=== PATIENT | female | born 1990 ===

== ENCOUNTER 2021-02-14 22:40 | Inpatient (IN) | payer OTHER ==
[~2021-02-14] VITALS: Ht 177.8 cm; Wt 74.1 kg
--- NOTE | 2021-02-14 22:50 | NUR ---
PT TO UNIT AMBULATORY WITH SPOUSE WITH COMPLAINTS OF CONTRACTIONS. PT ORIENTED TO ROOM, CHANGED INTO GOWN, EFMX2 APPLIED, VS OBTAINED, SVE PERFORMED.
[2021-02-14 23:30] VITALS: BP 141/86; PULSE 50; TEMP 98.4
[2021-02-15] VITALS (41 sets, daily range): BP systolic 108–172; BP diastolic 61–102; PULSE 48–91; TEMP 97.4–99.2
[2021-02-15 00:24] LABS: COLLECTION METHOD CLEAN CATCH
[2021-02-15 00:31] LABS: MUCOUS Present /lpf; PH 5 (5-8); SQUAMOUS EPITHELIAL None Seen /hpf; URINE APPEARANCE Clear; URINE BACTERIA None Seen /hpf; URINE BILIRUBIN Negative (NEGATIVE); URINE BLOOD Negative (NEGATIVE); URINE COLOR Amber; URINE GLUCOSE Negative (NEGATIVE); URINE KETONE Negative (NEGATIVE); URINE LEUKOCYTE ESTERASE Negative (NEGATIVE); URINE NITRATE Negative (NEGATIVE); URINE PROTEIN(semi-quant) 1+ (NEGATIVE); URINE RBC None Seen /hpf; URINE WBC 0-2 /hpf
[2021-02-15 00:38] LABS: ALBUMIN 3.4 gm/dL (3.5-5.0); CALCIUM 9.1 mg/dL (8.4-10.2); CREATININE, serum 0.92 (0.52-1.25); POTASSIUM 3.8 mmol/L (3.4-5.0); TOTAL PROTEIN 6.8 gm/dL (6.4-8.2)
[2021-02-15 00:40] LABS: BASO % 0.4 % (0.0-2.0); EOS % 0.3 % (0-4.0); GRAN # 8.4 (1.4-6.5); GRAN % 77.7 % (42.2-75.2); HEMATOCRIT 37.3 % (37.0-47.0); HEMOGLOBIN 12.8 g/dl (12.5-16.0); LYMPH # 1.6 (1.2-3.4); LYMPH % 15.2 % (20.0-51.0); MEAN CELL VOLUME 93 fl (80.0-100.0); MEAN CORPUSCULAR HEMOGLOBIN 32 pg (27.0-31.0); MEAN CORPUSCULAR HGB CONC 34 g/dl (33.0-37.0); MONO # 0.6 (0.1-0.6); MONO % 5.8 % (1.7-9.3); PLATELET COUNT 187 K/mm3 (130-400); RED BLOOD COUNT 4.01 M/mm3 (4.10-5.30); REDCELL DISTRIBUTION WIDTH-CV 12.3 % (11.5-14.5)
[2021-02-15 00:58] LABS: BILIRUBIN,TOTAL 1.7 mg/dL (0.0-1.0)
--- NOTE | 2021-02-15 01:00 | NUR ---
0038- PT SITTING UP AT BEDSIDE FOR EPIDURAL PLACEMENT. 0040- FRANKO HARDING IN ROOM TO PLACE EPIDURAL. DISCUSSES RISKS/BENEFITS OF EPIDURAL WITH PT AND SPOUSE, UNDERSTANDING VERBALIZED. PT AGREES TO EPIDURAL PLACEMENT. 0053- TEST DOSE GIVEN BY Marquis BURROUGHS CRNA, PT TOLERATED WELL. 0100- PT REPOSITIONED INTO SACHIN POSITION FOLLOWING EPIDURAL PLACEMENT.
[2021-02-15] MEDS ORDERED: ASPIRIN 81M81 MG/TA2 PO (02:21)
[2021-02-15] MEDS ORDERED: SYNTHROID0.05 MG/TA PO (02:23)
[2021-02-15] MEDS ORDERED: PRENATAL TABLET PO (02:24)
--- NOTE | 2021-02-15 07:44 | NUR ---
0744- Patient reports increased rectal pressure. SVE C/+2. Dr. Vizcaino notified. See physician notification. 0752- Patient instructed on pushing with ctx. Begins to push with ctx with this RN at bedside. 0756- Dr. Vizcaino to bedside. 0757- AROM for small amount of mec stained fluid. Patient continues to push with Dr. Vizcaino at bedside. 0810- Spontaneous vaginal delivery of viable male . To mother's chest where dried and stimulated by nursery RN. 0812- Cord clamped x2 and cut by adam. Care of assumed by Yash Alonzo RN. 0816- Spontaneous and intact delivery of placenta. Pitocin to 333ml/hr per protocol. Second degree and periurethral laceration repaired by Dr. Vizcaino. Fundus firm, midline, and bleeding minimal. Kylah care provided, pads changed, and ice pack to perineum. Plan of care and safety precatuions reviewed. See doctor dictation, anesthesia record, and nurses notes.
--- NOTE | 2021-02-15 10:15 | NUR ---
Patient states she feels gush of fluids. Fundus firm and midline. Pt voids with fundal exam. To edge of bed, epidural catheter removed, see flowsheet. Clean gown on, pads changed. Patient reports lightheadedness and nausea. Pivot to wheelchair and to room 216. Patient reports nausea and lightheadedness improved. Oriented to room and POC.
--- NOTE | 2021-02-15 15:00 | NUR ---
Pala size clot noted to pad. Fundus firm, midline, and bleeding minimal. VSS. Will cont. to monitor.
--- NOTE | 2021-02-15 19:00 | NUR ---
1900- PT CALLS OUT THAT SHE HAS PASSED A LARGE CLOT AND LEAKED BLOOD ALL OVER THE FLOOR IN HER ROOM, NURSE TO BEDSIDE. PT IN [id number] CLEANING UP, DENIES DIZZINESS OR LIGHTHEADED. BLOOD SPLATTERS ON FLOOR FROM WINDOW TO ROOM, SEEM TO ALSO BE MIXED WITH URINE. BASEBALL SIZED CLOT NOTED ON PAD IN BATHROOM. PT ASSISTED TO CLEAN UP, CLEAN LINEN AND GOWN PROVIDED. FLOOR CLEANED AND MOPPED BY HOUSEKEEPING. PT ASSISTED BACK TO BED FOR ASSESSMENT AND VITAL SIGNS CHARTED.
--- NOTE | 2021-02-15 20:00 | NUR ---
1999- PT CALLS OUT WITH ANOTHER LARGE CLOT, BASEBALL SIZED. DR JOHNSON NOTIFIED HE IS HERE SEEING A PT. HE PLACES ORDERS FOR METHERGINE AND LABS IN AM. 2004- PT NOTIFIED OF PLAN OF CARE AND QUESTIONS ANSWERED.
--- NOTE | 2021-02-15 21:00 | NUR ---
2100- PT CALLS OUT AFTER PASSING ANOTHER CLOT. METHERGINE ONLY ON BOARD SINCE 2014, NO PT WILL GET UP AT 2200 TO CHECK AGAIN. 2214- PT CALLS OUT AFTER PASSING ANOTHER CLOT IN BATHROOM THAT IS EGG SIZED. CLEAN LINEN PROVIDED. WILL NOTIFY DR JOHNSON. FUNDUS FIRM AND DOWN 2, SMALL TRICKLE OF BLEEDING WITH MASSAGE. 2230- DR JOHNSON CALLED AND UPDATED THAT PT IS CONTINUING TO PASS CLOTS THAT ARE ABOUT BASEBALL SIZED. FUNDUS FIRM AND VSS. PT NOT DIZZY OR LIGHTHEADED AT THIS TIME. DR JOHNSON STATES HE WOULD LIKE TO GET AT LEAST ANOTHER DOSE OF ORAL METHERGINE ON BOARD AT 0200. HE STATES TO CONTINUE TO MONITOR AND CALL IF BLEEDING GETS WORSE OR PT GETS SYMPTOMATIC. 2240- PT UPDATED ON PLAN OF CARE AND QUESTIONS ANSWERED. NURSE WEIGHS LAST 3 PADS FOR EBL AND GETS 560ML.
[2021-02-16] VITALS (24 sets, daily range): BP systolic 106–141; BP diastolic 56–75; PULSE 45–102; TEMP 97.5–98.9
--- NOTE | 2021-02-16 | NUR ---
0000- PT CALLS OUT BECAUSE SHE HAS PASSED ANOTHER CLOT AND SHE NOW FEELS DIZZY. NURSE TO ROOM. BATHROOM HAS BLOOD ALL OVER, PT IS BACK IN BED AND STATES SHE IS LIGHTHEADED. VITAL SIGNS CHARTED. PADS WEIGHED AND EBL IS 405. FUNDUS IF FIRM, BUT WITH MODERATE FLOW. ROOM CLEANED AND REASSURANCE PROVIDED. 0018- DR JOHNSON CALLED AND UPDATED WITH PT'S CURRENT CLOT AND EBL. NOTIFIED HIM THAT SHE IS NOW LIGHT HEADED AND HER BLEEDING IS MODERATE WITH MASSAGE. ORDERS TO CALL IN [facility] FOR ANESTHESIA, STAT H&H AND PREPARE FOR D&C. 0040- LABS DRAWN, DR JOHNSON AT BEDSIDE AND DISCUSSES PLAN OF CARE AND RISKS AND BENEFITS OF D&C. QUESTIONS ANSWERED. 0045- PT SIGNS CONSENT FORMS. 0101- PT TO OR PER WHEELCHAIR, SEE ANESTHESIA RECORD. 0200- PT TO LR3 PER BED.
[2021-02-16 00:39] LABS: HEMATOCRIT 24.1 % (37.0-47.0); HEMOGLOBIN 8.2 g/dl (12.5-16.0)
[2021-02-16 01:12] LABS: MEAN CELL VOLUME 96 fl (80.0-100.0); MEAN CORPUSCULAR HGB CONC 34 g/dl (33.0-37.0); MEAN PLATELET VOLUME 12.8 fl (7.4-10.4); PLATELET COUNT 190 K/mm3 (130-400); RED BLOOD COUNT 2.49 M/mm3 (4.10-5.30); REDCELL DISTRIBUTION WIDTH-CV 12.4 % (11.5-14.5)
[2021-02-16 01:16] LABS: HEMATOCRIT 23.9 % (37.0-47.0); HEMOGLOBIN 8.1 g/dl (12.5-16.0); MEAN CORPUSCULAR HEMOGLOBIN 33 pg (27.0-31.0)
[2021-02-16 01:20] LABS: INR 0.9 (0.8-3.0); PROTHROMBIN TIME 10.1 SECONDS (9.7-12.8)
[2021-02-16 01:23] LABS: PARTIAL THROMBOPLASTIN TIME 25.9 SECONDS (26.0-37.0)
[2021-02-16 08:10] LABS: HEMATOCRIT 21.6 % (37.0-47.0)
[2021-02-16 09:27] LABS: ALBUMIN 2.1 gm/dL (3.5-5.0); BILIRUBIN,TOTAL 0.5 mg/dL (0.0-1.0); CALCIUM 7.8 mg/dL (8.4-10.2); CREATININE, serum 0.94 (0.52-1.25); POTASSIUM 4.3 mmol/L (3.4-5.0); TOTAL PROTEIN 4.4 gm/dL (6.4-8.2)
--- NOTE | 2021-02-16 12:35 | NUR ---
50mls removed from Bakri baloon every hour without complications or bleeding concerns. Bakri removed easily with slight traction. Pt tolerated well. Will continue to monitor bleeding.
--- NOTE | 2021-02-16 14:40 | NUR ---
1435- Pt assisted to sitting on side of bed, tolerating well. Pt stands at side of bed. Stands for approximately 3 mins then complains of shortness of breath and slight dizziness. Pt assisted to sitting position. Pt states feels better sitting. After approx 5 mins of sitting and feeling well Pt attempts to stand again. Instantly feeling light-headed and short of breath. Back to sitting position. Discussed blood transfusion with Pt and answered questions. Dr Haider called to bedside to speak to Pt . Pt assisted to semi-fowlers position and Pt verbalizes feeling much better laying down.
--- NOTE | 2021-02-16 21:00 | NUR ---
2099- PT SITTING UP ON EDGE OF BED WITHOUT DIZZINESS OR LIGHTHEADED. PT ASSISTED TO BATHROOM, AMBULATING WELL. HOPKINS CATHETER REMOVED WITHOUT DIFFICULTY AND PT PERFORMS PERICARE. CLEAN LINEN PROVIDED. PT THEN ASSISTED TO SIT UP IN CHAIR. 2114- PT TRANSFERS INDEPENDENTLY TO WHEELCHAIR. PT TRANSFERRED TO ROOM 216. BELONGINGS AND BABY SENT WITH PT. PT ORIENTED TO ROOM AND CALL LIGHTS. PLAN OF CARE DISCUSSED AND QUESTIONS ANSWERED. PT DENIES ANY DIZZINESS OR LIGHTHEADED.
[2021-02-17 05:30] VITALS: BP 120/64; PULSE 68; TEMP 97.8
[2021-02-17 06:52] VITALS: BP 122/63; PULSE 60; TEMP 98
[2021-02-17 07:28] LABS: HEMATOCRIT 23.3 % (37.0-47.0); HEMOGLOBIN 7.6 g/dl (12.5-16.0)
[2021-02-17] MEDS ORDERED: FERROUS SU325 MG/TAB PO (08:48)
[2021-02-17] MEDS ORDERED: MOTRIN 600600 MG/TAB PO (08:48)
--- NOTE | 2021-02-17 12:45 | NUR ---
1245-Reviewed discharge instructions with patient, instructed on when to notify of concerns. All questions answered. 1305-Ambulatory off unit.
== END 2021-02-17 13:05 | disposition home or self-care (01) | DRG 768 ==
LOC: LDRO 22:40 → LDR 22:50 → OB 02-15 10:15 → LDR 02-16 02:00 → OB 02-17 06:00
PROVIDERS: Obstetrics & Gynecology; ADMIT Obstetrics & Gynecology
PROC: 10E0XZZ Delivery of Products of Conception, External Approach (ICD-10-PCS; principal; 2021-02-15)
PROC: 0KQM0ZZ Repair Perineum Muscle, Open Approach (ICD-10-PCS; 2021-02-15)
PROC: 0UQMXZZ Repair Vulva, External Approach (ICD-10-PCS; 2021-02-15)
PROC: 0W3R7ZZ Control Bleeding in Genitourinary Tract, Via Natural or Artificial Opening (ICD-10-PCS; 2021-02-16)
PROC: 10D17ZZ Extraction of Products of Conception, Retained, Via Natural or Artificial Opening (ICD-10-PCS; 2021-02-16)
DX: O26.62 Liver and biliary tract disorders in childbirth (principal); Z37.0 Single live birth; K83.1 Obstruction of bile duct; D62 Acute posthemorrhagic anemia; O72.2 Delayed and secondary postpartum hemorrhage; O99.284 Endocrine, nutritional and metabolic diseases complicating childbirth; E03.9 Hypothyroidism, unspecified; O71.82 Other specified trauma to perineum and vulva; O70.1 Second degree perineal laceration during delivery; O77.0 Labor and delivery complicated by meconium in amniotic fluid; O69.81X0 Labor and delivery complicated by cord around neck, without compression, not applicable or unspecified; O90.81 Anemia of the puerperium; Z20.822 Contact with and (suspected) exposure to COVID-19; Z3A.39 39 weeks gestation of pregnancy
CPT/HCPCS: J0690; J1200; J2210; J2250; J2590; J2791; J7120; P9016

== ENCOUNTER 2023-03-25 06:21 | Inpatient (IN) | payer OTHER ==
[2023-03-25] VITALS (35 sets, daily range): BP systolic 92–140; BP diastolic 55–83; PULSE 50–99; TEMP 97.9–98.5
[~2023-03-25] VITALS: Ht 177.8 cm; Wt 79.5 kg
[~2023-03-25 06:21] MED LIST: ASPIRIN 81M81 MG/TA2 PO; FERROUS SU325 MG/TAB PO; MOTRIN 600600 MG/TAB PO; PRENATAL TABLET PO; SYNTHROID0.05 MG/TA PO
--- NOTE | 2023-03-25 06:30 | NUR ---
PT AMBULATORY TO UNIT WITH SPOUSE. ORIENTED TO ROOM AND PLAN OF CARE. PT REPORTS POSITIVE MOVEMENT, NOT FEELING CONTRACTIONS, AND NO LOF. EFM CAT 1, VS STABLE. COMFORTABLE WITH PLAN OF CARE.
[2023-03-25 07:16] LABS: BASO % 0.5 % (0.0-2.0); EOS % 0.4 % (0.0-4.0); GRAN % 68.2 % (42.2-75.2); HEMOGLOBIN 11.4 g/dl (12.5-16.0); LYMPH # 1.7 K/mm3 (1.2-3.4); LYMPH % 23.1 % (20.0-51.0); MEAN CELL VOLUME 90 fl (80.0-100.0); MEAN CORPUSCULAR HEMOGLOBIN 31 pg (27-31); MEAN CORPUSCULAR HGB CONC 34 g/dl (33.0-37.0); MEAN PLATELET VOLUME 11.9 fl (7.4-10.4); MONO # 0.5 K/mm3 (0.1-0.6); MONO % 6.8 % (1.7-9.3); PLATELET COUNT 215 K/mm3 (130-400); RED BLOOD COUNT 3.71 M/mm3 (4.10-5.30); REDCELL DISTRIBUTION WIDTH-CV 12.3 % (11.5-14.5)
[2023-03-25 07:20] LABS: HEMATOCRIT 33.4 % (37.0-47.0)
--- NOTE | 2023-03-25 07:49 | NUR ---
PT AMBULATE TO RESTROOM, TOCO AND EFM DISCONTECTED. COULD NOT TRACE ACCURATE CONTRACTIONS.
--- NOTE | 2023-03-25 09:15 | NUR ---
PT AMBULATE TO BATHROOM, TOCO AND EFM DISCONNECTED. UNABLE TO DETECT CONTRACTIONS. VS STABLE, PT COMFORTABLE.
--- NOTE | 2023-03-25 10:05 | NUR ---
PT AMBULATE TO BATHROOM, TOCO AND EFM DISCONNECTED. UNABLE TO DETECT CONTRACTIONS. VS STABLE, PT COMFORTABLE.
--- NOTE | 2023-03-25 11:34 | NUR ---
1126 SUPERVISOR REACTOR FUELING TE AT BESIDE. PT SITTING AT SIDE OF BED, SPOUSE SUPPORTIVE AT BEDSIDE. 1134 SS DOSE. PT TOLERATED WELL, REPOSITIONED AND COMFORTABLE. EFM CAT 1, VS STABLE.
--- NOTE | 2023-03-25 12:24 | NUR ---
[address] MESSINA, -0. PT SROM ON EXAM.
--- NOTE | 2023-03-25 14:39 | NUR ---
1427 [facility] [place], /+1. DR ROLES, CHARGE, AND NURSERY NOTIFIED. ROOM SET FOR DELIVERY. [facility] CAT 1
--- NOTE | 2023-03-25 14:39 | NUR ---
1432 DR ROLES AT BEDSIDE FOR DELIVERY. [address] ROLES. DR STATES "SHOULDER IS CAUGHT ON CERVIX" 1439 CERVIX REDUCED. SDV OF VIABLE MALE INFANT PER DR ROLES. PLACED ON MATERNAL ABDOMEN AND CARE ASSUMED BY NURSERY RN. [address] ROLES. LOCHIA WNL, FUNDUS FIRM AT U, VS STABLE. PERIURETHRAL LACERATION REPAIRED. PITOCIN BOLUS INFUSING PER POLICY. ROOM PUT BACK TOGETHER. PT COMFORTABLE WITH SPOUSE AT BEDSIDE.
--- NOTE | 2023-03-25 18:25 | NUR ---
Pt able to bend L knee but not R. FF minimal flow no clots. Reviewed plan of care to try to move to room @ 1900. Denies needs.
--- NOTE | 2023-03-25 19:10 | NUR ---
Pt able to stand at bedside, states "that R leg doesn't feel very stable" to bathroom via 'jorge alberto steady.'Voids large amount but misses 'hat', performs own pericare. To postaprtum room via 'jorge alberto' Pt instructed to not get up to bathroom without staff assistance. Verbalizes understanding. attentive at bedside.
[2023-03-26] VITALS: BP 124/76; PULSE 65; TEMP 97.9
[2023-03-26 05:00] VITALS: BP 126/72; PULSE 65; TEMP 98
[2023-03-26 07:55] VITALS: BP 123/70; PULSE 76; TEMP 97.1
--- NOTE | 2023-03-26 08:40 | NUR ---
Initial visit attempt; Nurse with Parents and son. [employer] left card offering congratulations and God's blessings to the family for their son and information regarding the availability of Spiritual Care at our hospital.
[2023-03-26] MEDS ORDERED: IBU800 M1 PO (09:44)
[2023-03-26 11:11] VITALS: BP 111/69; PULSE 53; TEMP 97.9
--- NOTE | 2023-03-26 15:40 | NUR ---
DISCHARGE TEACHING COMPLETED. EDUCATED ON FOLLOW UP APPOINTMENT AND PRESCRIPTION. QUESTIONS INVITED AND ANSWERED.
== END 2023-03-26 16:10 | disposition home or self-care (01) | DRG 807 ==
LOC: OB 06:21 → LDR 06:21 → OB 19:30
PROVIDERS: ADMIT Obstetrics & Gynecology
PROC: 10E0XZZ Delivery of Products of Conception, External Approach (ICD-10-PCS; principal; 2023-03-25)
PROC: 0UQMXZZ Repair Vulva, External Approach (ICD-10-PCS; 2023-03-25)
PROC: 3E033VJ Introduction of Other Hormone into Peripheral Vein, Percutaneous Approach (ICD-10-PCS; 2023-03-25)
DX: O26.643 Intrahepatic cholestasis of pregnancy, third trimester (principal); Z37.0 Single live birth; Z3A.36 36 weeks gestation of pregnancy; E78.79 Other disorders of bile acid and cholesterol metabolism; K76.89 Other specified diseases of liver; O71.82 Other specified trauma to perineum and vulva; Z23 Encounter for immunization
CPT/HCPCS: J2590; J2791; J2795; J7120